=== PATIENT | male | born 1945 | race Caucasian/White ===

== ENCOUNTER 2017-09-26 22:40 | Emergency (ER) | payer OTHER ==
[~2017-09-26] VITALS: Ht 182.9 cm; Wt 91.0 kg
[2017-09-26 22:47] VITALS: BP 150/96
[2017-09-26] MEDS ORDERED: INDOMETHACIN 50 MG CAPSULE PO ONE (23:30)
[2017-09-26] MEDS ORDERED: INDOMETHACIN 50 MG CAPSULE ONE (23:49)
== END 2017-09-27 00:11 | disposition home or self-care (01) ==
LOC: ED 23:59
DX: M10.00 Idiopathic gout, unspecified site (principal); Z87.891 Personal history of nicotine dependence; I10 Essential (primary) hypertension
CPT/HCPCS: 99284

== ENCOUNTER → 2017-12-16 | Outpatient (CLI) | payer OTHER | END | disposition home or self-care (01) | LOC: RAD 17:18 | PROVIDERS: ATTEND Family Medicine | DX: M79.601 Pain in right arm (principal) ==

== ENCOUNTER → 2018-02-16 | Outpatient (CLI) | payer OTHER ==
[~2018-02-16] MED LIST: GADOBUTROL 10 MMOL/10 ML PFS ONE
== END | disposition home or self-care (01) ==
LOC: CFH 12:47
PROVIDERS: ATTEND Radiology Radiation Oncology
DX: D33.3 Benign neoplasm of cranial nerves (principal); G93.89 Other specified disorders of brain; I63.9 Cerebral infarction, unspecified; R90.82 White matter disease, unspecified
CPT/HCPCS: 70553; A9585

== ENCOUNTER → 2018-03-08 | Outpatient (CLI) | payer OTHER | END | disposition home or self-care (01) | LOC: ROC 08:24 | PROVIDERS: ATTEND Radiology Radiation Oncology | DX: D33.3 Benign neoplasm of cranial nerves (principal); I10 Essential (primary) hypertension; M10.9 Gout, unspecified | CPT/HCPCS: 99213; G0463 ==

== ENCOUNTER 2018-08-07 20:35 | Emergency (ER) | payer OTHER ==
[~2018-08-07] VITALS: Ht 180.3 cm; Wt 96.6 kg
[2018-08-07 21:32] LABS: BASOPHILS # (AUTO) 0.04 x10^3/uL (0-0.1); BASOPHILS % (AUTO) 1 % (0-1); EOSINOPHILS # (AUTO) 0.06 x10^3/uL (0-0.4); EOSINOPHILS % (AUTO) 1 % (1-7); LYMPHOCYTES # (AUTO) 2.49 x10^3/uL (1-3.4); LYMPHOCYTES % (AUTO) 31 % (22-44); MD NO; MEAN CORPUSCULAR HGB CONC 34.6 g/dL (33.2-36.2); MEAN CORPUSCULAR VOLUME 89.8 fL (81-97); MEAN PLATELET VOLUME 8.3 fL (7.4-10.4); MONOCYTES # (AUTO) 0.59 x10^3/uL (0.2-0.8); MONOCYTES % (AUTO) 7 % (2-9); NEUTROPHILS # (AUTO) 4.78 x10^3/uL (1.8-6.8); NEUTROPHILS % (AUTO) 60 % (42-75); PLATELET COUNT 239 x10^3/uL (130-400); RED BLOOD COUNT 5.07 x10^6/uL (4.38-5.82); RED CELL DISTRIBUTION WIDTH 14.8 % (9.4-14.8)
[2018-08-07 21:44] LABS: ALBUMIN 3.9 g/dL (3.4-5.0); ANION GAP 9 mmol/L (5-15); CHLORIDE 112 mmol/L (98-107)
[2018-08-07 21:50] LABS: CREATININE 1.16 mg/dL (0.7-1.3); TROPONIN I < 0.015 ng/mL (0.000-0.045)
[2018-08-07 22:42] VITALS: BP 132/84
[2018-08-08] MEDS ORDERED: BLOOD PRESSURE (08:37)
[2018-08-08] MEDS ORDERED: CHOLESTEROL (08:37)
[2018-08-08] MEDS ORDERED: ASPIRIN (08:42)
[2018-08-08] MEDS ORDERED: LOVA40TA2 PO (15:07)
[2018-08-08] MEDS ORDERED: AMLO-150 PO (15:07)
== END 2018-08-07 22:46 | disposition left against medical advice (07) ==
LOC: ED 22:40
DX: R09.02 Hypoxemia (principal); M54.6 Pain in thoracic spine; I10 Essential (primary) hypertension; M19.90 Unspecified osteoarthritis, unspecified site; Z90.89 Acquired absence of other organs
CPT/HCPCS: 36415; 71046; 80048; 82040; 83880; 84484; 85025; 85379; 93005; 99284

== ENCOUNTER 2018-08-08 08:21 | Observation (INO) | payer OTHER ==
[~2018-08-08] VITALS: Ht 182.9 cm; Wt 91.7 kg
[2018-08-08] MEDS ORDERED: CHOLESTEROL (08:37)
[2018-08-08] MEDS ORDERED: BLOOD PRESSURE (08:37)
[2018-08-08] MEDS ORDERED: ASPIRIN (08:42)
[2018-08-08 09:09] LABS: BASOPHILS # (AUTO) 0.05 x10^3/uL (0-0.1); BASOPHILS % (AUTO) 1 % (0-1); EOSINOPHILS # (AUTO) 0.12 x10^3/uL (0-0.4); EOSINOPHILS % (AUTO) 2 % (1-7); LYMPHOCYTES # (AUTO) 3.07 x10^3/uL (1-3.4); LYMPHOCYTES % (AUTO) 39 % (22-44); MD NO; MEAN CORPUSCULAR HGB CONC 33.7 g/dL (33.2-36.2); MEAN CORPUSCULAR VOLUME 89.2 fL (81-97); MEAN PLATELET VOLUME 8.2 fL (7.4-10.4); MONOCYTES % (AUTO) 6 % (2-9); NEUTROPHILS # (AUTO) 4.24 x10^3/uL (1.8-6.8); NEUTROPHILS % (AUTO) 53 % (42-75); PLATELET COUNT 241 x10^3/uL (130-400); RED BLOOD COUNT 5.09 x10^6/uL (4.38-5.82); RED CELL DISTRIBUTION WIDTH 14.9 % (9.4-14.8)
[2018-08-08 09:15] LABS: ANION GAP 8 mmol/L (5-15); CALCIUM 8.4 mg/dL (8.5-10.1); CHLORIDE 111 mmol/L (98-107)
[2018-08-08 09:21] LABS: CREATININE 0.86 mg/dL (0.7-1.3); TROPONIN I < 0.015 ng/mL (0.000-0.045)
[2018-08-08] MEDS ORDERED: OMNIPAQUE 350 MG/ML, 100ML BOTTLE ONE (10:07)
[2018-08-08] MEDS ORDERED: HYDROcodone/APAP 5/325 TABLET ONE (10:42)
[2018-08-08] MEDS ORDERED: LIDODERM 5% PATCH TD PRN (11:00)
[2018-08-08] MEDS ORDERED: HYDROcodone/APAP 5/325 TABLET PO ONE (11:00)
[2018-08-08] MEDS ORDERED: KETOROLAC 30 MG/1 ML IV PRN (11:00)
[2018-08-08] MEDS ORDERED: IBUPROFEN 600 MG TABLET PO PRN (11:00)
[2018-08-08] MEDS ORDERED: ONDANSETRON ODT 4 MG PO PRN (11:00)
[2018-08-08 12:25] VITALS: BP 153/92
[2018-08-08] MEDS: ENOXAPARIN 40 MG/0.4 ML SQ SCH (12:48)
[2018-08-08] MEDS ORDERED: AMLO-150 PO (15:07)
[2018-08-08] MEDS ORDERED: LOVA40TA2 PO (15:07)
[2018-08-08 15:46] LABS: TROPONIN I < 0.015 ng/mL (0.000-0.045)
[2018-08-08 18:47] VITALS: BP 152/88
[2018-08-08] MEDS ORDERED: LOVASTATIN 40 MG TABLET PO SCH (21:00)
[2018-08-08 21:02] LABS: TROPONIN I < 0.015 ng/mL (0.000-0.045)
[2018-08-08] MEDS: ACETAMINOPHEN 325 MG TABLET PO PRN (21:08)
[2018-08-09 00:28] VITALS: BP 16/71
[2018-08-09 01:59] VITALS: BP 162/68
[2018-08-09] MEDS: ACETAMINOPHEN 325 MG TABLET PO PRN (05:15)
[2018-08-09 05:36] LABS: BASOPHILS # (AUTO) 0.03 x10^3/uL (0-0.1); BASOPHILS % (AUTO) 1 % (0-1); EOSINOPHILS # (AUTO) 0.23 x10^3/uL (0-0.4); EOSINOPHILS % (AUTO) 5 % (1-7); LYMPHOCYTES # (AUTO) 1.73 x10^3/uL (1-3.4); LYMPHOCYTES % (AUTO) 35 % (22-44); MD NO; MEAN CORPUSCULAR HEMOGLOBIN 30.7 pg (27.5-34.5); MEAN CORPUSCULAR HGB CONC 34.3 g/dL (33.2-36.2); MEAN CORPUSCULAR VOLUME 89.3 fL (81-97); MEAN PLATELET VOLUME 8.2 fL (7.4-10.4); MONOCYTES # (AUTO) 0.34 x10^3/uL (0.2-0.8); MONOCYTES % (AUTO) 7 % (2-9); NEUTROPHILS # (AUTO) 2.65 x10^3/uL (1.8-6.8); NEUTROPHILS % (AUTO) 53 % (42-75); PLATELET COUNT 186 x10^3/uL (130-400); RED BLOOD COUNT 4.58 x10^6/uL (4.38-5.82); RED CELL DISTRIBUTION WIDTH 14.7 % (9.4-14.8)
[2018-08-09 05:45] LABS: ALANINE AMINOTRANSFERASE 25 U/L (12-78); ALBUMIN 3.4 g/dL (3.4-5.0); ANION GAP 7 mmol/L (5-15); CALCIUM 7.9 mg/dL (8.5-10.1); CHLORIDE 109 mmol/L (98-107)
[2018-08-09 05:48] LABS: ALKALINE PHOSPHATASE 78 U/L (45-117); BILIRUBIN,TOTAL 0.5 mg/dL (0.2-1.0); CHOL/HDL RATIO 2.6; CHOLESTEROL, TOTAL 162 mg/dL (140-239); CREATININE 0.78 mg/dL (0.7-1.3); HDL CHOL % 38 % (26-37); HDL CHOLESTEROL (DIRECT) 62 mg/dL (40-60); LDL CHOLESTEROL,CALCULATED 77 mg/dL (54-169); LDL/HDL RATIO 1.2 (0.5-3.0); TOTAL PROTEIN 5.9 g/dL (6.4-8.2); TRIGLYCERIDES 114 mg/dL (50-200); VLDL CHOLESTEROL 23 mg/dL (0-25)
[2018-08-09] MEDS ORDERED: ASPIRIN 81 MG TABLET EC PO SCH (06:00)
[2018-08-09 08:39] VITALS: BP 137/85
[2018-08-09] MEDS ORDERED: AMLODIPINE 5 MG TABLET PO SCH (09:00)
[2018-08-09] MEDS: ENOXAPARIN 40 MG/0.4 ML SQ SCH (11:00)
[2018-08-09] MEDS ORDERED: IBUP200T49 PO (11:10)
== END 2018-08-09 12:45 | disposition home or self-care (01) ==
LOC: ED 09:03 → EDIP 10:42 → INTOOBSV 10:42 → 4WST 11:40 → DCLOUNGE 08-09 12:27
PROVIDERS: ADMIT Internal Medicine; ATTEND Internal Medicine
DX: J96.01 Acute respiratory failure with hypoxia (principal); M25.511 Pain in right shoulder; J98.11 Atelectasis; I11.9 Hypertensive heart disease without heart failure; I51.7 Cardiomegaly; E78.5 Hyperlipidemia, unspecified; Z87.891 Personal history of nicotine dependence; Z82.49 Family history of ischemic heart disease and other diseases of the circulatory system
CPT/HCPCS: 36415; 71275; 80048; 80053; 80061; 82040; 83735; 84439; 84443; 84484; 85025; 93005; 93306; 96374; 99284; G0378; J1885; Q9967

== ENCOUNTER → 2018-09-04 | Outpatient (CLI) | payer MEDICARE ==
[~2018-09-04] MED LIST changes: +AMLO-150 PO; +ASPIRIN; +BLOOD PRESSURE; +CHOLESTEROL; -GADOBUTROL 10 MMOL/10 ML PFS ONE; +IBUP200T49 PO; +LOVA40TA2 PO; +REGADENOSON 0.4 MG/5 ML SYRINGE ONE
== END | disposition home or self-care (01) ==
LOC: CFH 07:13
PROVIDERS: ATTEND Internal Medicine Cardiovascular Disease
DX: R06.02 Shortness of breath (principal)
CPT/HCPCS: 78452; 93017; A9502; J2785

== ENCOUNTER 2018-09-05 12:03 | Outpatient (CLI) | payer MEDICARE ==
[~2018-09-05 12:03] MED LIST changes: -REGADENOSON 0.4 MG/5 ML SYRINGE ONE
== END 2018-09-05 23:59 | disposition home or self-care (01) ==
LOC: CARD 12:03
PROVIDERS: ATTEND Internal Medicine Cardiovascular Disease
DX: R06.02 Shortness of breath (principal)
CPT/HCPCS: 94060; 94618; 94726; 94729

== ENCOUNTER 2020-01-12 13:24 | Emergency (ER) | payer MEDICARE ==
[~2020-01-12] VITALS: Ht 182.9 cm; Wt 93.3 kg
--- NOTE | 2020-01-12 13:41 | NUR ---
PT HERE FOR CHIEF COMPLAINT OF POSSIBLE BITE TO LEFT KNEE OF [place] SOURCE 4 DYAS AGO. REDDNESS AND SWELLING NOTED TO LEFT KNEE. PT REFUSING TO CHANGE IN TO HOSPTIAL GOWN
[2020-01-12 14:44] VITALS: BP 133/87
== END 2020-01-12 14:46 | disposition home or self-care (01) ==
LOC: ED 14:26
DX: L03.116 Cellulitis of left lower limb (principal); I10 Essential (primary) hypertension; M10.9 Gout, unspecified; Z90.89 Acquired absence of other organs; Z87.891 Personal history of nicotine dependence
CPT/HCPCS: 99281